=== PATIENT | female | born 1940 ===

== ENCOUNTER 2020-04-16 06:15 | Day surgery (SDC) | payer OTHER ==
[~2020-04-16 06:15] MED LIST: AMBIEN10 MG PO; AVAPRO300 MG PO; CLARITIN10 MG PO; LIPITOR20 MG PO; SYNTHROID75 MCG PO; TENORMIN50 M1 PO
[2020-04-16] MEDS ORDERED: MACROBID 100 M100 MG PO (09:36)
[2020-04-16] MEDS ORDERED: ULTRACET PO (09:36)
== END 2020-04-16 12:35 | disposition home or self-care (01) ==
LOC: CIR.AMB 06:15 → ADM 11:15 → CIR.AMB 11:15
PROVIDERS: ATTEND Obstetrics & Gynecology Gynecology
DX: N81.3 Complete uterovaginal prolapse (principal); Z20.828 Contact with and (suspected) exposure to other viral communicable diseases